=== PATIENT | male | born 1960 | race Caucasian/White ===

== ENCOUNTER → 2017-11-07 | Outpatient (CLI) | payer SELFPAY ==
--- NOTE | 2017-11-09 09:27 | CT ---
HISTORY: Screening, positive family history Study: Coronary calcium score Comparison: None Technique: Coronary calcium score was performed without the administration of intravenous contrast ut ilizing prospective gating. AEC was utilized. Findings: The patient's coronary calcium score is 203 which places the patient between the 50 and 75th percenti le for age and sex. At least moderate atherosclerotic plaque is identified with mild coronary artery disease highly likely and significant narrowings possible. Thoracic spondylosis and posterior depende nt subsegmental atelectatic changes are noted. IMPRESSION: Moderate calcified atherosclerotic plaque. Reported By:
== END ==
LOC: RAD 14:22
PROVIDERS: ATTEND Student in an Organized Health Care Education/Training Program
DX: Z13.6 Encounter for screening for cardiovascular disorders (principal)